=== PATIENT | male | born 1950 | race Caucasian/White ===

== ENCOUNTER 2023-07-24 09:17 | Day surgery (SDC) | payer MEDICARE, OTHER, SELFPAY ==
--- NOTE | 2023-08-03 17:53 | ITS.CL.CARDI ---
Supervisor Tubing - Cardioversion
Cardioversion
Procedure Report:
Date of Procedure: 07/24/23
Procedure: Cardioversion
Indication: Symptomatic atrial fibrillation
Performing Physician: Margarette Fitzpatrick DO [facility]
Technique: The patient was brought to the holding area. Signed informed consent was obtained. A time out was called and performed. The patient was anesthetized by the anesthesia service. Anticoagulation status was reviewed and appropriate. R2 pads
were placed anteriorly and posteriorly. A 200J synchronized biphasic shock restored normal sinus rhythm without significant bradycardia. There were no complications.
Conclusion: Uncomplicated cardioversion from atrial fibrillation to sinus rhythm.
Recommendation: Routine post cardioversion care. Continue emt intermediate anticoagulation.
== END 2023-07-24 11:15 | disposition home or self-care (01) ==
LOC: CATH 09:17
PROVIDERS: ATTENDING PHYSICIAN Internal Medicine Cardiovascular Disease; FAMILY PHYSICIAN Family Medicine; OTHER PHYSICIAN Internal Medicine Cardiovascular Disease
DX: I48.0 Paroxysmal atrial fibrillation (principal); I47.10 Supraventricular tachycardia, unspecified; Z79.01 Long term (current) use of anticoagulants
CPT/HCPCS: 92960; 93005

== ENCOUNTER 2024-08-02 18:11 | Day surgery (SDC) | payer MEDICARE, OTHER, SELFPAY ==
[2024-08-02] VITALS (15 sets, daily range): BP systolic 103–147; BP diastolic 71–100; BMI 23.1; BMI 23.7
[2024-08-02 10:21] LABS: % Basophils 0.4 % (0-2); % Eosinophils 0.7 % (0-6); % Immature Granulocytes 0.2 % (0-0.5); % Lymphocytes 15.6 % (20.5-51.1); % Monocytes 7.9 % (1.7-9.3); % Neutrophils 75.2 % (42.2-75.2); Absolute Eosinophils 0.1 10^3/uL (0-0.7); Absolute Lymphocytes 1.3 10^3/uL (1.2-3.4); Absolute Monocytes 0.7 10^3/uL (0.1-0.6); Absolute Neutrophils 6.2 10^3/uL (1.4-6.5); Hematocrit 42.1 % (39.0-52.0); Hemoglobin 14.3 g/dL (13.0-18.0); Mean Corpuscular Hgb 30.6 pg (27.0-31.0); Mean Platelet Volume 10.6 fL (7.4-10.4); Nucleated Red Blood Cells % 0 % (-); Platelet Count 203 10^3/uL (130-400); Red Blood Cell Count 4.68 10^6/uL (4.70-6.10); Red Cell Dist. Width 13.2 % (11.5-14.5); White Blood Cell Count 8.3 10^3/uL (4.8-10.8)
[2024-08-02 10:34] LABS: Lactic Acid 0.6 mmol/L (0.7-2.0)
[2024-08-02 10:37] LABS: ALT (SGPT) 18 U/L (0-50); AST (SGOT) 28 U/L (17-59); Albumin 4.1 g/dl (3.5-5.0); Alkaline Phosphatase 87 U/L (38-126); Blood Urea Nitrogen 16 mg/dl (9-20); Calcium 9.5 mg/dl (8.4-10.2); Carbon Dioxide 24 mmol/L (22-30); Chloride 106 mmol/L (98-107); Glucose 111 mg/dl (70-99); Lipase 149 U/L (23-300); Potassium 4.5 mmol/L (3.5-5.1); Sodium 137 mmol/L (135-145); Total Bilirubin 2.4 mg/dl (0.2-1.3); Total Protein 6.8 g/dl (6.3-8.2); eGFR > 60.00
--- NOTE | 2024-08-02 11:39 | EDRN ---
awaiting for provider to see the pt
--- NOTE | 2024-08-02 11:47 | ED.GENMED ---
History of Present Illness
General
Chief Complaint: Abdominal Pain
Source: patient and spouse
Exam Limitations: none
Time Seen by Provider: 08/02/24 11:15
Nursing documentation reviewed up to this point in time: agreed with
History of Present Illness
History of Present Illness:
Patient is a 73-year-old male who presents to the ER complaining of abdominal pain. Patient has a history of small bowel obstruction and small bowel resection in 2016. He started last week with increased pain abdominal bloating however worse over
the past 2 to 3 days and this morning was even worse. He did have small pellet stool this morning. He is not nauseous or vomiting. He denies any fevers. He does feel similar to obstruction the past. Though he had surgery once in the past by
obstruction he has had NG tube in the past as well.
Patient was last admitted here June 2022 for enteritis versus adynamic ileus versus a small bowel obstruction and was treated with NG tube which resolved symptoms.
Past History
Past History
ED Past Medical History: Other (Eosinophilic fasciitis) and Other (Vertiginous migraines)
ED Past Surgical History: None
Social History
Tobacco: Former smoker
Alcohol: Daily (1 vodka martini per day)
Personal:
Living: with family
Employment: Retired
Family History
Family History: Other (Noncontributory)
Review of Systems
Review of Systems
Allergies reviewed?: Yes
Other source history: family
All Other Systems: ROS reviewed and negative except as documented in HPI and ROS
Constitutional: Denies fever, fatigue or chills
Respiratory: Reports no symptoms
Cardiac: Reports no symptoms
ABD/GI: Reports abdominal pain and constipated; Denies nausea or vomiting
: Reports no symptoms
Musculoskeletal: Reports no symptoms
Skin: Reports no symptoms
Neurological: Reports no symptoms
Psychiatric: Reports no symptoms
Phy Exam
General Physical Exam
General Presentation: no apparent distress
General age: appears stated age
General Skin: warm and dry
General Habitus: normal
General Mental: alert
General Hydration: appears well hydrated
Cardiovascular Exam
Cardiovascular Exam: regular rate/rhythm, no murmur and normal peripheral pulses
Pulmonary Exam
Pulmonary Exam: lungs clear and no respiratory distress
Gastrointestinal Exam
Gastrointestinal Exam: soft and other (tender throughout right abdomen ; hyperactive bowel sounds )
Neurological Exam
Neurological Exam: alert and oriented x3
Musculoskeletal Exam
Musculoskeletal Exam: full ROM
Skin Exam
Skin Exam: normal color and warm/dry
Psychiatric Exam
Psychiatric Exam: normal mood/affect
Course
Orders/Labs/Results
Orders:
Orders
08/02/24 10:08
Complete Blood Count/With Diff Urgent
Comprehensive Metabolic Panel Urgent
Lactic Acid Urgent
Lipase Urgent
08/02/24 11:54
CT Abd/pel W Iv And Oral Contr Urgent
Comment:
Reason For Exam: pain hx of bowel obs /sm bowel resection
HYDROmorphone [Dilaudid] 0.5 mg IV NOW STA
Iohexol [Omnipaque] See Protocol PO NOW STA
Ondansetron Injectable [Zofran] 4 mg IV NOW STA
08/02/24 11:55
0.9% Sodium Chloride 1000 ml [Nss] 1,000 ml IV BOLUS
08/02/24 Dinner
Regular
At Your Request: Limited Participation
08/02/24 15:16
Piperacillin/Tazo 3.375 Gram [Zosyn] 3.375 gram in 50 ml IV NOW
08/02/24 15:31
0.9% Sodium Chloride 1000 ml [Nss] 1,000 ml IV BOLUS
HYDROmorphone [Dilaudid] 0.5 mg IV NOW STA
08/02/24 16:44
HYDROmorphone [Dilaudid] 0.25 mg IV PACU-Q5MPRN PRN
HYDROmorphone [Dilaudid] 0.5 mg IV PACU-Q5MPRN PRN
Ondansetron Injectable [Zofran] 4 mg IV PACU-ONCEPRN PRN
Prochlorperazine [Compazine] 5 mg IV PACU-ONCEPRN PRN
Notify MD As Directed
Notify physician if: for SDS patients with known or suspected sleep obstructive sleep apnea, monitor in the
PACU.
Notify MD for any apneic/desaturation episodes
O2 Therapy [RESP] Urgent
Titrate/Wean O2 to maintain O2 sat greater than (%): 92
Special Instructions: -Provide supplemental oxygen to achieve O2 sat of 92% or greater.
-After 15 min, may wean O2 and discontinue if patient is able to maintain O2 sat of 92%
or greater during recovery period.
If patient is a discharge home, without oxygen therapy, notify anestheiologist if
unable to maintain O2 SAT of 92% or greater on room air for MD clearance.
08/02/24 16:45
Normosol (Mult Electrolytes) [Normosol-R/Plasmalyte-A] 1,000 ml IV PER PROTOCOL
08/02/24 18:06
Bupivacaine 0.25%Pf/Epinephrin [Sensorcaine-Epi 0.25%-0.0005] 30 ml .ROUTE .STK-MED ONE
Lidocaine 2% Mpf [Xylocaine Mpf 2%] 100 mg .ROUTE .STK-MED ONE
Propofol [Diprivan] 20 ml .ROUTE .STK-MED
Rocuronium Boomer [Rocuronium] 50 mg .ROUTE .STK-MED ONE
08/02/24 18:07
Dexamethasone Sod Phosphate [Decadron] 20 mg .ROUTE .STK-MED ONE
Fentanyl Citrate/Pf [Sublimaze] 100 mcg .ROUTE .STK-MED ONE
Ondansetron Injectable [Zofran] 4 mg .ROUTE .STK-MED ONE
08/02/24 18:29
Admit Patient As Directed
Co-Sign Provider:
Level of Care: Post Proc/Surg Recovery
Assign to:: Medical/Surgical
Physician / Group: Chadd / DOMINIK
Diagnosis: Acute appendicitis
Reason for Overnight Stay: Standard of Care
Code Status As Directed
Resuscitation Status: Full Code
HYDROmorphone [Dilaudid] 0.5 mg IV Q2HPRN PRN
Ondansetron Injectable [Zofran] 4 mg IV Q6HPRN PRN
Oxycodone [Roxicodone] 5 mg PO Q4HPRN PRN
Activity As Directed
Activity Level: Ambulate
Intake/ Output As Directed
Frequency: Per unit guidelines
Vital Signs As Directed
Frequency: Per unit guidelines
PRN Pain Medication Management As Directed
May give lesser potent ordered pain med per pt: Yes
preference::
Protocol:: Medication orders for pain may be administered in a
manner that supports deferring to patient preference
when the pt is:
- Requesting an ordered lesser potent pain medication.
Least to most potent pain medications are defined
as: acetaminophen < NSAID < tramadol < opioids
(morphine, oxycodone, hydromorphone).
- Requesting a lesser dose of the same medication IF
ORDERED.
- Requesting a less intrusive route of administration
if both routes are prescribed by the provider (PO <
IV).
08/02/24 18:30
Normosol (Mult Electrolytes) [Normosol-R/Plasmalyte-A] 1,000 ml IV 100 mls/hr
Pneumatic Compression Sleeves As Directed
Type: Knee high
Rx Incentive Spirometry [RESP] Routine
Frequency: q1h while awake
# of times per hour: 10
DX Deep Vein Thrombosis Video Routine
08/02/24 19:05
HYDROmorphone [Dilaudid] 1 mg .ROUTE .STK-MED ONE
08/02/24 19:34
Rocuronium Boomer [Rocuronium] 50 mg .ROUTE .STK-MED ONE
08/02/24 19:51
Sugammadex Sodium [Bridion] 200 mg .ROUTE .STK-MED ONE
08/02/24 19:58
Ketorolac [Toradol] 30 mg .ROUTE .STK-MED ONE
08/02/24 20:00
Acetaminophen [Tylenol] 650 mg PO Q4HWA
08/02/24 20:16
OR Pathology Routine
Pre-Operative Diagnosis: acute appendicitis
Operative Procedure: lap appy
Surgeon: chadd
Circulating Nurse: geovany
Specimen Type: appendix
08/02/24 20:26
Zolpidem Tartrate [Ambien] 2.5 mg PO HSPRN PRN
08/02/24 21:00
Flush (0.9% Sodium Chloride) [Flush (Nss)] See Dose Instructions IV PER PROTOCOL
08/02/24 22:00
Amlodipine [Norvasc] 10 mg PO HS
Piperacillin/Tazo 3.375 Gram [Zosyn] 3.375 gram in 50 ml IV Q6H
08/03/24 02:00
Ketorolac [Toradol] 10 mg IV Q6HPRN PRN
08/03/24 06:16
Complete Blood Count/No Diff IN AM
Comprehensive Metabolic Panel IN AM
08/03/24 08:00
Atorvastatin [Lipitor] 10 mg PO DAILY
Metoprolol Xl [Toprol Xl] 25 mg PO DAILY
Venlafaxine Extended Release [Effexor Xr] 75 mg PO DAILY
08/03/24 08:51
Discharge Patient As Directed
Is patient a candidate for the pneumococcal vaccine?: No
Year the MOST RECENT Conjugate Pneumococcal vaccine received: 2017
Year Pneumococcal vaccine administered: 2018
Is patient a candidate for the influenza vaccine?: No
Month/Year vaccine administered for 7905-5134 flu season: 6999-8753 Season/Unsure
Month/Year vaccine administered for 9341-0607 flu season: February 2020
Month/Year vaccine administered for 1906-9816 flu season: February 2022
Do you have a designated caregiver: Yes-same as spokesperson
08/03/24 18:00
Enoxaparin Sodium [Lovenox] 40 mg SC QPM
Abnormal Lab Results
08/02/24 08/03/24
10:08 06:16
RBC 4.68 L 10^6/uL 4.16 L 10^6/uL
(4.70-6.10) (4.70-6.10)
Hgb 12.6 L g/dL
(13.0-18.0)
Hct 37.5 L %
(39.0-52.0)
MPV 10.6 H fL 11.2 H fL
(7.4-10.4) (7.4-10.4)
Absolute Monos (auto) 0.7 H 10^3/uL
(0.1-0.6)
Lymphocytes % 15.6 L %
(20.5-51.1)
Glucose 111 H mg/dl 166 H mg/dl
(70-99) (70-99)
Lactic Acid 0.6 L mmol/L
(0.7-2.0)
Total Bilirubin 2.4 H mg/dl 2.1 H mg/dl
(0.2-1.3) (0.2-1.3)
Total Protein 5.8 L g/dl
(6.3-8.2)
Albumin 3.4 L g/dl
(3.5-5.0)
08/03/24 06:16
08/03/24 06:16
Vital Signs
Initial and Last Documented VS:
Initial Vital Signs
Temp Pulse Resp BP Pulse Ox
98.6 F 62 20 147/97 99
08/02/24 10:01 08/02/24 10:01 08/02/24 10:01 08/02/24 10:01 08/02/24 10:01
Last Documented Vital Signs
Temp Pulse Resp BP Pulse Ox
97.8 F 60 16 120/72 94
08/03/24 07:40 08/03/24 07:46 08/03/24 07:40 08/03/24 07:46 08/03/24 07:45
MDM/Problems Addressed
Differential Diagnosis Includes:
not limited to: Diverticulitis, bowel suction, appendicitis
MDM/Problems Addressed:
Patient is a 73-year male who presented with abdominal pain. History of by obstructions in the past. On exam patient was tender in the right lower quadrant CAT scan done and does show an acute appendicitis. Patient is nontoxic-appearing with
normal white count stable vital signs. Dr. Florentino made aware via tt
*Radiology
Radiology exam reviewed: radiology read reviewed
*Pulse Oximetry
Patient hypoxic: no
*Critical Care Note
Total Time (30-74mins, 75-104mins- exclusive of procedures): Not Applicable
Patient Management
Discussion with other providers: Hematologist Oncologist (surgery, DR Florentino )
ED Attending Note
-
Portions of this chart may have been created with voice recognition software.� Occasional wrong word or��sound alike� substitutions may have occurred due to the inherent limitations of voice recognition software.
Discharge Plan
Departure
Patient Disposition: Admit
Date of Disposition: 08/02/24
Time of Disposition: 15:29
Admit to doctor: DR Florentino
Presentation/result/management discussed w/ accepting MD/DO: DR Florentino
Patient with high blood pressure during this ER visit?: Yes
Condition: Fair
Covid-19: Not Applicable
Discharge Problem:
Acute appendicitis
Interventions
Interventions:
*Risk Screen - Suicide Last Done: 08/02/24 10:01
*General Assessment Last Done: 08/02/24 10:01
*Neglect/Abuse Screening Last Done: 08/02/24 10:01
*ED- Fall Risk Assessment Last Done: 08/02/24 12:02
*ED COVID-19 Vaccine History Last Done: 08/02/24 12:02
*Nursing Disposition Last Done: 08/02/24 18:02
RP-Ondkso-Ixajpbuoti Assessment Last Done: 08/02/24 12:02
Discharge Date and Time
Discharge Date/Time: 08/02/24 18:24
[2024-08-02] MEDS: DILAUDID 0.5 MG IV ×2 (12:09→15:37)
[2024-08-02] MEDS: OMNIPAQUE 50 ML PO (12:09)
[2024-08-02] MEDS: NSS 1000 IV ×2 (12:09→15:37)
[2024-08-02] MEDS: ZOFRAN 4 MG IV (12:09)
[2024-08-02] MEDS: ZOSYN 50 IV ×2 (15:36→22:54)
--- NOTE | 2024-08-02 16:10 | HPS.HSE ---
Family Physician
-
Family Physician: Huy Lau
Chief Complaint
-
RLQ abdominal pain
History of Present Illness
Patient is a 73 yo M with a PMH of HTN, HLD, A-fib s/p ablation (no anticoagulation), s/p laparoscopic assisted small bowel resection by Dr. Riley in 2014, intermittent SBO's managed medically (last admission in 2022), and s/p open RIGHT inguinal
hernia repair with mesh. Mr. Ruiz presents with approximately 1 week of RLQ abdominal pain. He states that about a week ago he developed a slight twinge. Intermittent mild discomfort since that time initially attributed to a small bowel
obstruction. Over the past 24 to 48 hours he has had worsening severe RLQ abdominal pain prompting presentation to the ED. No fevers or chills. No nausea or vomiting. He notes constipation, nonbloody stools. No urinary symptoms. His last
colonoscopy was in 2020 and notable for a tubular adenoma in the cecum, random biopsies were obtained at that time to rule out Crohn's disease and were negative for granulomas or dysplasia. During the time of his small bowel resection there was
some concern for possible inflammatory bowel disease. Pathology at that time was negative for Crohn's disease. No family history notable for IBD or colon cancers.
Medical History
Past Medical History
Past Medical History: Reports Arrhythmia (A-fib), HTN, Hypercholesterolemia and Psychiatric (Depression/anxiety)
Past Surgical History: Reports Bowel Resection (Laparoscopic assisted SBR in [address] Riley), Cardiac (Ablation in 02/2024) and Other (Open RIGHT inguinal hernia)
Social History
Tobacco: Former Smoker
Alcohol: Daily
Drug: None
Personal:
Living: With Family
Family History
Family History: Not pertinent
Allergies / Home Medications
Allergies reflects when Allergies were last updated in [facility].
Home Medications with original date entered in [facility]
Allergy/Medication List:
NKDA
Review of Systems
-
A 12 point ROS was completed and negative except as noted: Yes
Physical Exam
Vital Signs
Vital Signs
Temp Pulse Resp BP Pulse Ox
98.6 F 57 20 136/86 95
08/02/24 12:02 08/02/24 13:00 08/02/24 13:00 08/02/24 13:00 08/02/24 13:15
Physical Exam
General: Well Developed, Well Nourished and No Apparent Distress
HEENT: NormoCephalic and Anicteric
Respiratory: Non Labored Respirations
Cardiac: Regular Rhythm
GI: Soft, Non Distended, Tender (RLQ) and Other (No diffuse peritonitis, prior infraumbilical vertical incision well-healed, palpable incisional hernia at umbilicus containing fat)
Musculoskeletal: No Edema
Skin: Warm and Dry
Neuro: Nonfocal/grossly intact
Laboratory Results
-
08/02/24 10:08
08/02/24 10:08
Laboratory Results
Lactic Acid 0.6 mmol/L (0.7-2.0) L 08/02/24 10:08
Total Bilirubin 2.4 mg/dl (0.2-1.3) H 08/02/24 10:08
AST 28 U/L (17-59) 08/02/24 10:08
ALT 18 U/L (0-50) 08/02/24 10:08
Alkaline Phosphatase 87 U/L (38-126) 08/02/24 10:08
Lipase 149 U/L (23-300) 08/02/24 10:08
Data Reviewed
-
CT Scan: Image Personally Visualized and interpreted and Report Reviewed by me
Lab Data: Labs Reviewed by me
Old Records: Reviewed
Impression/Plan
-
IMPRESSION:
Patient is a 73 yo M p/w acute appendicitis
Of appendicitis was reviewed. CT scan imaging as a relates to his appendix The natural history and pathophysiology was reviewed. Options for management including medical management with antibiotics versus surgical management with appendectomy were
considered and discussed. The pros and cons of both approaches was discussed. Specifically, we discussed failure of medical management and future episodes of appendicitis versus surgical risks. Mr. Ruiz and his would like to proceed with
surgical management.
Plan for a laparoscopic appendectomy. The procedure itself, as well as the risks, benefits, and alternatives was discussed. Specifically, we discussed the risks of bleeding, infection, injury to surrounding structures (bowel), staple line leak,
need for open procedure. Typical postprocedural recovery was discussed. All questions answered. Consent signed.
PLAN:
-- Laparoscopic appendectomy
-- NPO, IVF
-- Antibiotics: Zosyn
-- Admit postoperatively
--- NOTE | 2024-08-02 16:14 | W.SUR.PREOP ---
Pre-Operative Surgical Note
-
I have examined this patient prior to the performance of the scheduled procedure.
The patient's condition is unchanged from the time of the current History and
Physical and the patient is able to undergo the scheduled procedure.
--- NOTE | 2024-08-02 18:02 | EDRN ---
the OR nurse called this RN and this RN gave verbal report
--- NOTE | 2024-08-02 20:01 | W.IMMPOSTOP ---
Surgical Immed Post Op Note
-
Primary Surgeon: Chadd
Assisting Surgeon: None
Pre-op Diagnosis: Acute appendicitis
Post-op Diagnosis: Acute appendicitis, ventral incisional hernia
Procedure Performed: Laparoscopic appendectomy, open primary repair of ventral incisional hernia
Anesthesia Type: General
Specimen / Cultures:
1. Appendix
Estimated Blood Loss: 11 cc
Complications: None
Operative Findings:
1. Severely inflamed, gangrenous appendix, no perforation or spillage
2. Mesentery taken with Voy[employer], base with purple load stapler
3. Ventral incisional hernia at umbilicus from prior incision, fascial defect 1 cm, closed with interrupted 0 PDS
[2024-08-02] MEDS: TYLENOL PO (21:21)
[2024-08-02] MEDS: NORMOSOL-R/PLASMALYTE-A 1000 IV (21:37)
--- NOTE | 2024-08-02 22:07 | PTCARENOTE ---
Pt arrived to [facility] from PACU in a bed on 4L of O2 at 95%. Pt has 4 lap sites COLLEGE [employer] with glue. Admission questions answered by pt and full head to toe assessed. Pt oriented to room and call tyson within reach. Care ongoing.
[2024-08-02] MEDS: NORVASC 10 MG PO (22:54)
[2024-08-02] MEDS: TYLENOL 650 MG PO (23:12)
[2024-08-03 03:15] VITALS: BP 103/64
[2024-08-03] MEDS: ZOSYN 50 IV (03:58)
[2024-08-03] MEDS: TYLENOL 650 MG PO ×2 (03:58→07:46)
[2024-08-03 07:37] LABS: Hematocrit 37.5 % (39.0-52.0); Hemoglobin 12.6 g/dL (13.0-18.0); Mean Corp Hgb Conc. 33.6 g/dL (33.0-37.0); Mean Corpuscular Hgb 30.3 pg (27.0-31.0); Mean Corpuscular Volume 90.1 fL (80.0-94.0); Mean Platelet Volume 11.2 fL (7.4-10.4); Platelet Count 183 10^3/uL (130-400); Red Blood Cell Count 4.16 10^6/uL (4.70-6.10); Red Cell Dist. Width 12.8 % (11.5-14.5); White Blood Cell Count 6.7 10^3/uL (4.8-10.8)
[2024-08-03 07:40] VITALS: BP 120/72
[2024-08-03] MEDS: LIPITOR 10 MG PO (07:45)
[2024-08-03] MEDS: TOPROL XL 25 MG PO (07:46)
[2024-08-03] MEDS: EFFEXOR XR 75 MG PO (07:46)
[2024-08-03 08:20] LABS: ALT (SGPT) 13 U/L (0-50); AST (SGOT) 21 U/L (17-59); Albumin 3.4 g/dl (3.5-5.0); Alkaline Phosphatase 72 U/L (38-126); Blood Urea Nitrogen 15 mg/dl (9-20); Calcium 8.4 mg/dl (8.4-10.2); Carbon Dioxide 28 mmol/L (22-30); Chloride 102 mmol/L (98-107); Estimated Creatinine Clearance 84 ml/min; Glucose 166 mg/dl (70-99); Potassium 4.6 mmol/L (3.5-5.1); Sodium 135 mmol/L (135-145); Total Bilirubin 2.1 mg/dl (0.2-1.3); Total Protein 5.8 g/dl (6.3-8.2); eGFR > 60.00
--- NOTE | 2024-08-03 08:52 | W.PN.GS2 ---
Today's Communication / Plan
-
-- DC today
Assessment / Plan
-
Patient is a 73 yo M POD#1 s/p laparoscopic appendectomy
AVSS
Labs largely unremarkable, slight downtrend in bilirubin, likely reactive response from appendicitis
Clinically well. Okay for discharge from surgical perspective.
-- Regular diet
-- HLIV
-- Pain control: Tylenol, Toradol, Oxycodone
-- Home meds
-- DVT: Lovenox
-- DC today
Subjective Data
-
Date of Service: August 03, 2024
No complaints. Pain well-controlled. No nausea or vomiting. Afebrile.
Objective Data
-
Intake and Output
08/02/24 08/03/24 08/04/24
06:59 06:59 06:59
Intake Total 710 / 710
Balance 710 / 710
Intake:
Oral fluids 510 / 510
IV fluids (Total) 100 / 100
Normosol 100 / 100
IV piggybacks 100 / 100
Other:
Number of approximated LARGE 3
amounts of urine
Vital Signs
Temp Pulse Resp BP Pulse Ox
97.8 F 60 16 120/72 94
08/03/24 07:40 08/03/24 07:46 08/03/24 07:40 08/03/24 07:46 08/03/24 07:45
Lab Results
08/03/24 06:16
08/03/24 06:16
Calcium 8.4 mg/dl (8.4-10.2) 08/03/24 06:16
Total Bilirubin 2.1 mg/dl (0.2-1.3) H 08/03/24 06:16
AST 21 U/L (17-59) 08/03/24 06:16
ALT 13 U/L (0-50) 08/03/24 06:16
Alkaline Phosphatase 72 U/L (38-126) 08/03/24 06:16
Total Protein 5.8 g/dl (6.3-8.2) L 08/03/24 06:16
Albumin 3.4 g/dl (3.5-5.0) L 08/03/24 06:16
Physical Exam
-
Gen: NAD
Abd: soft, NT/ND, non-peritoneal, incisions c/d/i - no erythema or drainage, mild ecchymosis at umbilicus
Patient has a young catheter: No
Patient has a central line: No
--- NOTE | 2024-08-03 11:10 | CM ---
Initial assessment completed
Pt reports lives with and daughter in a 2 story home; 2 steps to enter, FF set-up
Independent, retired, drives. 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
DME - none
SNF/HH - denies past hx
Has ride at discharge
PCP - Huy Lau
Pharm - [facility]
Plan - home no needs
== END 2024-08-03 10:01 | disposition home or self-care (01) ==
LOC: SDS 18:11
PROVIDERS: ATTENDING PHYSICIAN Surgery; EMERGENCY PHYSICIAN Emergency Medicine; FAMILY PHYSICIAN Family Medicine
DX: K35.80 Unspecified acute appendicitis (principal); K43.2 Incisional hernia without obstruction or gangrene
CPT/HCPCS: 44970; 88304; 74177; 80053; 83605; 83690; 85025; 85027; 96361; 96365; 96375; 99285; C1776; Q9967

== ENCOUNTER → 2025-03-04 09:10 | Outpatient (REF) | payer MEDICARE, OTHER, SELFPAY | LOC: RCS 09:10 | PROVIDERS: ATTENDING PHYSICIAN Otolaryngology; FAMILY PHYSICIAN Family Medicine | DX: G47.33 Obstructive sleep apnea (adult) (pediatric) (principal); Z01.818 Encounter for other preprocedural examination | CPT/HCPCS: 93005 ==